=== PATIENT | female | born 1985 | race Caucasian/White ===

== ENCOUNTER 2018-09-05 16:41 | Outpatient (CLI) | payer OTHER ==
[~2018-09-05] VITALS: Ht 167.6 cm; Wt 83.5 kg
[2018-09-05 17:39] VITALS: BP 120/76; PULSE 88; RESP 18; Ht 167.6 cm; Wt 83.5 kg
[2018-09-05] MEDS ORDERED: LACTATED RINGER'S 1,000 ML IV SCH (17:53)
[2018-09-05] MEDS: TERBUTALINE 1 MG/ML INJ SC PRN ×2 (18:15→19:40)
--- NOTE | 2018-09-05 23:54 | PN ---
Triage Information Date/Time Reason for visit: Uterine contractions Weeks of Gestation 37 weeks and 3 days /Para 4 para 3004 with 1 delivery for twin gestation. Diabetes: none Hypertention: none Objective Vital Signs Date Temp Pulse Resp B/P (MAP) Pulse Ox O2 O2 Flow FiO2 Time Delivery Rate 09/05/18 98.0 88 18 120/76 99 17:39 (91) Heart Rate: 140's Contractions: 6-10 Minutes Apart Results/Medications Imaging Results Gestation: Single intrauterine gestation. Cardiac activity: 150 beats per minute Presentation: Vertex. Placenta: Location: Fundal/posterior Appearance: No previa or abruption. Amniotic Fluid: KELLI = 25.3 cm Measurements: BPD = 9.5 cm 38 weeks 4 days HC = 33.2 cm 37 weeks 6 days AC = 34.9 cm 38 weeks 6 days FL = 7.4 cm 37 weeks 5 days Gestational Age: AUA estimated gestational age: 38 weeks 2 days AUA estimated date of delivery: 09/17/2018 The EFW = 3500 g plus/minus 525 g (78.8%) Structures: The anatomy is not well evaluated on this limited scan. IMPRESSION: 1. Single intrauterine gestation of 38 weeks 2 days by ultrasound criteria. 2. Estimated date of delivery of 09/17/2018. 3. Polyhydramnios. The amniotic fluid index is 25.3 cm. This is between the 95 and 97.5 percentile. 4. Otherwise, no definite abnormalities are identified. Disposition: Discharge Assessment/Plan 33 years old with 4 delivery for twin gestation at 37 weeks and 3 days complaining of uterine contractions. She states good movement. She denies nausea, vomiting, shortness of breath, chest pain, headache, visual changes, vaginal bleeding or LOF. -FHR: No sign of metabolic acidosis- Category I -Initially she had regular uterine contraction every 3-6 minutes. She received IV fluid and 2 doses of terbutaline.no further uterine contractions. Patient was comfortable. She observed in triage for 4 and half hours. Her cervical exam was figured tIP/thick/high/cephalic/intact membrane. No cervical changes after 4 hours. -Ultrasound performed as noted above -Symptoms and sign of labor, preeclampsia, kick count discussed with patient, she voiced understanding. All of her questions answered. -Patient was discharged home in stable condition with the appropriate discharge instructions provided. I would like patient to have close follow-up with her primary physician or outpatient clinic in 1-2 days or return to triage for worsening symptoms or any other urgent concerns. EBER RIZO Sep 05, 2018 23:54
--- NOTE | 2018-09-06 10:02 | TRIAGE ---
OB Triage Datetime Report Generated by CPN: 09/06/2018 10:01 Datetime: 09/06/2018 22:17 Stage of : OB Triage Datetime: 09/06/2018 21:30 Stage of : OB Triage Datetime: 09/06/2018 20:30 Stage of : OB Triage Datetime: 09/06/2018 19:30 Stage of : OB Triage Datetime: 09/05/2018 22:17 Stage of : OB Triage Labor Evaluation Frequency: IRREG Monitor Mode: External Duration (sec)2399: 40-70 Quality: Mild Pattern: Normal: <= 5 Contractions in 10 Minutes Resting Tone [place]: Relaxed Heart Rate FHR Baseline Rate: 140 Monitor Mode: External US FHR Baseline Changes: No Baseline Change Variability: Moderate 6-25 bpm Accelerations: 15X15 Decelerations: None Category: Category I Datetime: 09/05/2018 21:52 Vaginal Exam Dilatation (cms): 0.5 Effacement (%): 50 Station: -3 Exam By: JOHNIE Datetime: 09/05/2018 21:30 Stage of : OB Triage Labor Evaluation Frequency: X4/HR Monitor Mode: External Duration (sec)2399: 70-150 Quality: Mild Pattern: Normal: <= 5 Contractions in 10 Minutes Resting Tone [place]: Relaxed Heart Rate FHR Baseline Rate: 140 Monitor Mode: External US FHR Baseline Changes: No Baseline Change Variability: Moderate 6-25 bpm Accelerations: 15X15 Decelerations: None Category: Category I Datetime: 09/05/2018 20:52 Vaginal Exam Dilatation (cms): 0.5 Effacement (%): 50 Station: -3 Exam By: JOHNIE Cervix, Position: Posterior Datetime: 09/05/2018 20:30 Stage of : OB Triage Labor Evaluation Frequency: X4/HR Monitor Mode: External Duration (sec)2399: 70-120 Quality: Mild Pattern: Normal: <= 5 Contractions in 10 Minutes Resting Tone [place]: Relaxed Heart Rate FHR Baseline Rate: 140 Monitor Mode: External US FHR Baseline Changes: No Baseline Change Variability: Moderate 6-25 bpm Accelerations: 15X15 Decelerations: None Category: Category I Datetime: 09/05/2018 19:30 Stage of : OB Triage Labor Evaluation Frequency: 3-9 Monitor Mode: External Duration (sec)2399: 50-100 Quality: Mild Pattern: Normal: <= 5 Contractions in 10 Minutes Resting Tone [place]: Relaxed Heart Rate FHR Baseline Rate: 140 Monitor Mode: External US FHR Baseline Changes: No Baseline Change Variability: Moderate 6-25 bpm Accelerations: 15X15 Decelerations: None Category: Category I Datetime: 09/05/2018 18:44 Stage of : OB Triage Headache: Denies Blurred Vision: No RUQ Epigastric Pain: Denies Facial Edema: None Labor Evaluation Frequency: none Pattern: Normal: <= 5 Contractions in 10 Minutes Resting Tone [place]: Relaxed Heart Rate FHR Baseline Rate: 145 Monitor Mode: External US FHR Baseline Changes: No Baseline Change Variability: Moderate 6-25 bpm Accelerations: 15X15 Decelerations: None Category: Category I Pain Presence: None/Denies Membrane Status: Intact Datetime: 09/05/2018 18:31 Stage of : OB Triage Headache: Denies Blurred Vision: No RUQ Epigastric Pain: Denies Facial Edema: None Labor Evaluation Frequency: none Pattern: Normal: <= 5 Contractions in 10 Minutes Resting Tone [place]: Relaxed Heart Rate FHR Baseline Rate: 140 Monitor Mode: External US FHR Baseline Changes: No Baseline Change Variability: Moderate 6-25 bpm Accelerations: 15X15 Decelerations: None Category: Category I Pain Presence: None/Denies Membrane Status: Intact Datetime: 09/05/2018 17:59 Stage of : OB Triage Labor Evaluation Frequency: 6 Monitor Mode: External Duration (sec)2399: 70 Quality: Mild Pattern: Normal: <= 5 Contractions in 10 Minutes Resting Tone [place]: Relaxed Heart Rate FHR Baseline Rate: 140 Monitor Mode: External US FHR Baseline Changes: No Baseline Change Variability: Moderate 6-25 bpm Accelerations: 15X15 Decelerations: None Category: Category I Membrane Status: Intact Datetime: 09/05/2018 17:43 Vaginal Exam Dilatation (cms): 0.5 Effacement (%): 50 Station: -2 Exam By: JOHN RNC Vaginal Bleeding: None Cervix, Consistency: Soft Cervix, Position: Posterior Presentation 'A': Cephalic Datetime: 09/05/2018 17:33 Stage of : OB Triage Time of Arrival: 08/30/2018 17:33 EGA: 36.4 Chief Complaint: contractions since last night Movement: Present Contractions: Irregular Time Contractions Began: 08/29/2018 02:00 Rupture of Membranes: Denies Vaginal Discharge: Denies Recent Sexual Intercouse: Denies Abdominal Trauma: Not Applicable Patient Complaints: Contractions Additional Patient Complaints: TRAY C/S ON 09/21/18 Time Provider Notified: 09/05/2018 17:45 Provider Notified: Dr Williamson Initial Plan: efm/ efm Maternal Assessment Level of Consciousness: Fully Conscious DTR's/Clonus: DTRs 2+; No Clonus Headache: Denies Blurred Vision: No Respiratory Effort: Unlabored; Regular Rhythm; Equal Expansion Breath Sounds, Left: Clear and Equal Breath Sounds, Right: Clear and Equal Nausea/Vomiting: Denies RUQ Epigastric Pain: Denies Lower Extremities Edema: Bilateral Lower Extremities Degree: 1+ Facial Edema: None Temperature Route: Oral Fall Risk Assessment History of Falling: (0) No Secondary Diagnosis: (0) No Ambulatory Aid: (0) Bedrest/Nurse Assist IV Therapy: (0) No Gait: (0) Normal/Bedrest/Immobile Mental Status: (0) Oriented to Own Ability Fall Score: 0 Fall Risk Score Definition: No Risk: No action required Labor Evaluation Frequency: 5 Monitor Mode: External Duration (sec)2399: 50 Quality: Mild Pattern: Normal: <= 5 Contractions in 10 Minutes Heart Rate FHR Baseline Rate: 130 Monitor Mode: External US Variability: Moderate 6-25 bpm Accelerations: 15X15 Decelerations: None Pain Assessment Pain Scale: 4 Pain Presence: Intermittent Pain Type: Contraction Pain Location: Abdomen Pain Relief Measures: Comfort Measures
== END 2018-09-05 22:40 | disposition home or self-care (01) ==
LOC: OBT 16:41 → L-D 16:42 → OBT 22:40
PROVIDERS: ATTEND Obstetrics & Gynecology
DX: O62.9 Abnormality of forces of labor, unspecified (principal); Z3A.37 37 weeks gestation of pregnancy
CPT/HCPCS: 36415; 76815; 96360; 96361; J3105; J7120; Z7500; G0463

== ENCOUNTER 2018-09-08 10:29 | Inpatient (IN) | payer OTHER ==
[~2018-09-08] VITALS: Ht 167.6 cm; Wt 83.7 kg
[2018-09-08 10:46] VITALS: BP 119/72; PULSE 76; Ht 167.6 cm; Wt 83.7 kg
[2018-09-08] MEDS ORDERED: PNV11TAB PO (10:47)
[2018-09-08] MEDS: LACTATED RINGER'S 1,000 ML IV SCH ×2 (11:50→19:36)
[2018-09-08] MEDS ORDERED: CARBOPROST 250 MCG INJ IM PRN ×2 (12:00→22:30)
[2018-09-08] MEDS ORDERED: METHYLERGONOVINE 0.2 MG INJ IM PRN ×2 (12:00→22:30)
[2018-09-08] MEDS ORDERED: CEFAZOLIN 2 GM/50 ML (PMX) 50 ML IVPB SCH (12:00)
[2018-09-08] MEDS ORDERED: OXYTOCIN 30 UNITS/LR 500 ML IV SCH ×2 (12:00→22:19)
[2018-09-08] MEDS ORDERED: MISOPROSTOL 200 MCG TAB PR PRN ×2 (12:00→22:30)
[2018-09-08] MEDS ORDERED: OXYTOCIN 30 UNITS/LR 500 ML IV PRN ×2 (12:00→22:30)
[2018-09-08] MEDS ORDERED: LACTATED RINGER'S 1,000 ML IV ONE (12:32)
--- NOTE | 2018-09-08 12:32 | PREAC ---
Date/Time of Note Date/Time of Note DATE: 09/08/18 TIME: 12:31 Anesthesia Eval and Record Evaluation Time Pre-Procedure Interview DATE: 09/08/18 TIME: 12:31 Age 33 Sex female NPO: 8 hrs Preoperative diagnosis intrauterine Planned procedure repeat c section Past Medical History Past Medical History: Includes : Gestational age: (37.6) Surgery & Anesthesia Issues No known issue Meds Anticoagulation: No Beta Elza within 24 hr: No Reason Beta Elza not given: Pt. not on B-Elza Reported Medications [id number] ( 19) 1 Each Tablet, 1 TAB PO DAILY, TAB 09/08/18 Current Medications Lactated Ringer's 1,000 ml @ 125 mls/hr Q8H IV Last administered on 09/08/18at 11:50; Admin Dose 125 MLS/HR; Start 09/08/18 at 11:36 Cefazolin Sodium/ Dextrose 50 ml @ 100 mls/hr ONCE IVPB ; Start 09/08/18 at 12:00 Oxytocin/Lactated Ringer's 500 ml @ 125 mls/hr POST IV ; Start 09/08/18 at 12:00 Oxytocin/Lactated Ringer's 500 ml @ 0 mls/hr ONCE PRN IV .VAGINAL BLEEDING; Start 09/08/18 at 12:00 Methylergonovine Maleate (Methergine) 0.2 mg ONCE PRN IM .VAGINAL BLEEDING; Start 09/08/18 at 12:00 Carboprost Tromethamine (Hemabate) 250 mcg ONCE PRN IM .VAGINAL BLEEDING; Start 09/08/18 at 12:00 Misoprostol (Cytotec) 1,000 mcg ONCE PRN MT .VAGINAL BLEEDING; Start 09/08/18 at 12:00 Meds reviewed: Yes Allergies Coded Allergies: No Known Allergy (Unverified , 09/05/18) Allergies Reviewed: Yes Labs/Studies Labs Reviewed: Reviewed by anesthesiologist Result Diagram: 09/08/18 1145 Laboratory Tests 09/08/18 11:45 test: N/A Pre-procedure Exam Last vitals Vital Signs Date Temp Pulse Resp B/P (MAP) Pulse Ox O2 O2 Flow FiO2 Time Delivery Rate 09/08/18 98.4 76 119/72 10:46 (88) Airway: Adequate mouth opening, Adequate thyromental dist Mallampati: Mallampati II Teeth: Normal Lung: Normal Heart: Normal ASA Physical Status ASA physical status: 2 Emergency: None Planned Anesthetic Neuraxial: Spinal Planned Pain Management Parenteral pain med Pre-operative Attestations Prior to commencing anesthesia and surgery, the patient was re-evaluated, there was verification of: *The patient's identity *The results of appropriate recent lab work and preoperative vital signs *The above evaluation not changing prior to induction *Anesthetic plan, risk benefits, alternative and complications discussed with patient/family; questions answered; patient/family understands, accepts and wishes to proceed. JAMIL FORD MD Sep 08, 2018 12:32
[2018-09-08] MEDS ORDERED: FAMOTIDINE 20 MG INJ IV ONE ×3 (13:00→17:03)
[2018-09-08] MEDS ORDERED: METOCLOPRAMIDE 10 MG INJ IV ONE (13:00)
[2018-09-08] MEDS ORDERED: CITRIC ACID/NA CITRATE 30 ML CUP PO ONE (13:00)
[2018-09-08] MEDS ORDERED: TERBUTALINE 1 MG/ML INJ SC ONE (15:30)
[2018-09-08] MEDS ORDERED: morphine SULFATE/PF (10 MG/10 ML) INJ ONE (17:16)
--- NOTE | 2018-09-08 17:27 | HP ---
Date/Time of Note Date/Time of Note DATE: 09/08/18 TIME: 17:26 OB - History Hx of Present Free Text/Dictation AT TERM WITH UTERINE CTXS AND PREEVIOUS C/S AND MULTIPARITY Care: Good Care Ultrasounds: Normal mid trimester US Obstetrical Complications: None Medical Complications: None Past Family/Social History * Past Medical, Surgical, Family and Obstetric Histories reviewed from chart. OB Admission Exam Vital Signs Vital Signs Vital Signs Date Temp Pulse Resp B/P (MAP) Pulse Ox O2 O2 Flow FiO2 Time Delivery Rate 09/08/18 98.4 76 119/72 10:46 (88) Physical Exam HEENT: WNL Heart: Rhythm Normal Lungs: Clear, Equal Abdomen: WNL Extremities: Normal Reflexes: Normal Cervical Dilatation: 2cm Effacement: 25% Station: -2 Membranes: Intact Heart Rate: 130's Accelerations: Accelerations Present Decelerations: No Decelerations Varibility: Moderate Contractions on Admission: 6-10 Minutes Apart Intensity: Moderate Last 72 hours Lab Results CBC & BMP 09/08/18 11:45 OB Assessment/Plan Reason for admission: active labor Plan: Section GEMA HICKMAN MD Sep 08, 2018 17:27
[2018-09-08] MEDS ORDERED: ONDANSETRON 4 MG INJ ONE (17:43)
[2018-09-08] MEDS ORDERED: PHENYLephrine (100 MCG/ML) 10ML SYG ONE ×2 (17:45→17:57)
[2018-09-08] MEDS ORDERED: ONDANSETRON 4 MG INJ IV PRN ×2 (18:00→18:30)
[2018-09-08] MEDS ORDERED: KETOROLAC 30 MG INJ IV PRN ×2 (18:00→18:30)
[2018-09-08] MEDS ORDERED: MEPERIDINE 25 MG INJ IV PRN (18:00)
[2018-09-08] MEDS ORDERED: DIPHENHYDRAMINE 50 MG INJ IV PRN ×2 (18:00→18:30)
[2018-09-08] MEDS ORDERED: HYDROmorphONE 1 MG/5 ML IV SYRINGE IV PRN ×3 (18:00)
[2018-09-08] MEDS ORDERED: PROCHLORPERAZINE 10 MG INJ IV PRN (18:00)
[2018-09-08] MEDS ORDERED: FENTAnyl 50 MCG/ML VIAL IV PRN ×3 (18:00)
[2018-09-08] MEDS ORDERED: OXYTOCIN 30 UNITS/LR 500 ML IV ONE (18:03)
--- NOTE | 2018-09-08 18:22 | OPR ---
Operative Report Planned Procedure Procedure date Sep 08, 2018 Procedure(s) REPEAT C/S AND BTL Performed by see signature line Clock And Watch Assembler: REBECA WONG MD Pre-procedure diagnosis REPEAT C/S IN LABOR AND BTL [id number] Anesthesia Type: Ptycp2l spinal Post-Procedure Post-procedure diagnosis SAME PRE OP Findings Live Baby [], Apgars [] and [], weight [], position [], [] presentation []cord. Estimated Blood Loss: 600 - 700 mls Specimen(s) none Grafts/Implant(s) none Complication(s) none Pt Condition post procedure: stable Disposition: PACU Procedure Description Under satisfactory []SPINAL anesthesia, the patient was prepped and draped and placed in a supine position, tilted to the left. Pfannenstiel incision was made, carried through the subcutaneous tissue. Bleeders brought under control with electrocautery. Fascia incised to the length of the incision. Rectus muscles from the fascia, divided midline. Peritoneum exposed, entered through a transverse incision. Exploration of abdomen revealed gravid uterus. Bladder flap was developed. Transverse incision was made in the lower segment of the uterus. Amniotic sac ruptured. CLEAR [] amniotic fluid noted. [] Nasal oropharyngeal suction was performed. The baby was handed to the team for immediate attention. The placenta was delivered manually intact. Uterine cavity was cleaned with wet sponge and drainage established. Uterus closed in 2 layers using ONE MONOCRYL [] in continuous fashion. Peritoneal cavity irrigated with warm saline. RIGHT AND LEFT TUBE WAS TIED USING O PLAIN TIE TWICE AND CUT Sponge, needle and instrument count reported to be correct. Abdominal peritoneum closed with [ONE MONOCRYL] continuously. Fascia closed with [ONE MONOCRYL], and skin closed with calos. Estimated blood loss [700]mL. GEMA HICKMAN MD Sep 08, 2018 18:22
--- NOTE | 2018-09-08 18:23 | PAC ---
Date/Time of Note Date/Time of Note DATE: 09/08/18 TIME: 18:21 Post-Anesthesia Notes Post-Anesthesia Note Last documented vital signs Vital Signs Date Temp Pulse Resp B/P (MAP) Pulse Ox O2 O2 Flow FiO2 Time Delivery Rate 09/08/18 98.4 76 119/72 10:46 (88) Activity: WNL Respiratory function: WNL Cardiovascular function: WNL Mental status: Baseline Pain reasonably controlled: Yes Hydration appropriate: Yes Nausea/Vomiting absent: Yes Comments BP: 108/57 HR: 99 RR: 16 T: 97.3 SaO2: 97% JAMIL FORD MD Sep 08, 2018 18:23
[2018-09-08] MEDS ORDERED: NALOXONE (0.4 MG/ML) INJ IV PRN (18:30)
[2018-09-08] MEDS ORDERED: ZOLPIDEM 5 MG TAB PO PRN (18:30)
[2018-09-08] MEDS ORDERED: HYDROmorphONE 0.5 MG/0.5 ML SYG IV PRN ×2 (18:30)
[2018-09-08 21:05] VITALS: BP 98/56; PULSE 77; RESP 18
[2018-09-08] MEDS ORDERED: LACTATED RINGER'S 1,000 ML IV SCH (22:19)
[2018-09-08] MEDS ORDERED: LANOLIN HPA 1 PKT TOP PRN (22:30)
[2018-09-08] MEDS ORDERED: NA PHOSPHATE/BIPHOS 133 ML ENEMA PR PRN (22:30)
[2018-09-08] MEDS ORDERED: NACL 0.9% 3 ML SYG IV SCH (22:30)
[2018-09-09] MEDS ORDERED: LACTATED RINGER'S 500 ML IV ONE
[2018-09-09 00:14] VITALS: BP 98/51; PULSE 77; RESP 20
[2018-09-09 04:10] VITALS: BP 98/53; PULSE 87; RESP 18
--- NOTE | 2018-09-09 07:29 | QN ---
Documentation Comment doing well vss abd soft incision healing well cpm GEMA HICKMAN MD Sep 09, 2018 07:29
[2018-09-09 08:00] VITALS: BP 110/65; PULSE 99; RESP 17
[2018-09-09 16:00] VITALS: BP 105/61; PULSE 93; RESP 18
[2018-09-09 19:50] VITALS: BP 115/76; RESP 16
[2018-09-09] MEDS: HYDROCODONE/APAP (5/325) TAB PO PRN (21:10)
[2018-09-09] MEDS: IBUPROFEN 800 MG TAB PO SCH (22:04)
[2018-09-10 04:30] VITALS: BP 111/71; PULSE 90; RESP 18
[2018-09-10] MEDS: IBUPROFEN 800 MG TAB PO SCH ×3 (06:04→21:45)
[2018-09-10 08:00] VITALS: BP 105/69; PULSE 89; RESP 18
[2018-09-10] MEDS: HYDROCODONE/APAP (5/325) TAB PO PRN ×2 (11:34→18:37)
--- NOTE | 2018-09-10 13:08 | QN ---
Documentation Comment POD#2 is stable afebrile tolerates diet No VB +Flatus +Voids VS stable Gen NAD Abd soft NT ND Incision intact Gentalia No blood at perineum -->Discharge plan tomorrow -->Ambulation -->Precautions discussed TRAVIS MCNEIL M.D. Sep 10, 2018 13:08
[2018-09-10 16:00] VITALS: BP 102/63; PULSE 87; RESP 17
[2018-09-10 19:50] VITALS: BP 106/66; PULSE 80
[2018-09-11] MEDS: HYDROCODONE/APAP (5/325) TAB PO PRN ×2 (03:58→12:08)
[2018-09-11 04:20] VITALS: BP 125/77; PULSE 78; RESP 18
[2018-09-11] MEDS: IBUPROFEN 800 MG TAB PO SCH (05:48)
[2018-09-11 08:00] VITALS: BP 102/59; PULSE 86; RESP 18
--- NOTE | 2018-09-11 08:19 | DS ---
Date/Time of Note Date/Time of Note DATE: 09/11/18 TIME: 08:18 Discharge Summary Admission/Discharge Info Admit Date/Time Sep 08, 2018 at 11:30 Discharge Date/Time Discharge Diagnosis term in labor with previous c/s Patient Condition: Stable Hospital Course unremarkable Home Meds Reported Medications [id number] ( 19) 1 Each Tablet, 1 TAB PO DAILY, TAB 09/08/18 Primary Care Provider Not On Staff Doctor Pending Labs Laboratory Tests Test 09/11/18 07:02 Lab Scanned Report REFERENCE LAB [id number] GEMA HICKMAN MD Sep 11, 2018 08:19
[2018-09-11] MEDS ORDERED: MEASLES,MUMPS,RUBELLA VACCINE INJ SC* ONE (09:00)
[2018-09-11] MEDS ORDERED: DIPHTH/TET/ACEL PERTUSS (ADULT) 0.5 ML VIAL IM* ONE (09:00)
--- NOTE | 2018-09-12 13:23 | DELSUM ---
Delivery Summary A-C Datetime Report Generated by CPN: 09/12/2018 13:23 DELIVERY PERSONNEL High School Sports Coach: Orel, Carolyn MATERNAL INFORMATION Delivery Anesthesia: Spinal Medications in Delivery: SEE ANESTHESIA Delivery QBL (ml): 700 Placenta Cultured: No Maternal Complications: None LABOR SUMMARY EDC: 09/23/2018 00:00 No. Babies in Womb: 1 Attempted: No Labor Anesthesia: None LABOR INFORMATION Reason for Induction: Not Applicable Onset of Labor: 09/08/2018 05:00 Oxytocin: N/A Group B Beta Strep: Negative Antibiotics # of Doses: ancef 2gm Antibiotics Time of Last Dose: 09/08/2018 17:16 Steroids Given: None Reason Steroids Not Administered: Not Applicable MEMBRANES Membranes Rupture Method: Artificial Rupture of Membranes: 09/08/2018 17:43 Length of Rupture (hr): 0.00 Amniotic Fluid Color: Clear Amniotic Fluid Amount: Moderate Amniotic Fluid Odor: None STAGES OF LABOR Stage 3 hr: 0 Stage 3 min: 1 Total Time in Labor hr: 12 Total Time in Labor min: 44 CSECTION DELIVERY Primary Indication: Repeat Elective Secondary Indication: Repeat Elective CSection Urgency: Elective CSection Incidence: Repeat Labor: N/A Elective: N/A CSection Incision: Lower Uterine Transverse Sterilization Procedure: [place] BABY A INFORMATION Delivery Date/Time: 09/08/2018 17:43 Method of Delivery: Born in Route : No : N/A Forceps: N/A Vacuum Extraction: N/A Shoulder Dystocia : No SHOULDER DYSTOCIA BABY A Delivery Date/Time: 09/08/2018 17:43 PRESENTATION/POSITION BABY A Presentation: Cephalic Cephalic Presentation: Vertex Vertex Position: Left Occipital Anterior Breech Presentation: N/A PLACENTA INFORMATION BABY A Placenta Delivery Time : 09/08/2018 17:44 Placenta Method of Delivery: Manual Removal Placenta Status: Delivered SCORES BABY A Heart Rate 1 min: >100 bpm Resp Effort 1 min: Good Cry Reflex Irritability 1 min: Cough/Sneeze/Pulls Away Muscle Tone 1 min: Active Motion Color 1 min: Blue/Pale Resuscitation Effort 1 min: Tactile Stimulation SCORE 1 MIN: 8 Heart Rate 5 min: >100 bpm Resp Effort 5 min: Good Cry Reflex Irritability 5 min: Cough/Sneeze/Pulls Away Muscle Tone 5 min: Active Motion Color 5 min: Body [place], Extremit Blue Resuscitation Effort 5 min: Tactile Stimulation SCORE 5 MIN: 9 INFORMATION BABY A Gestational Age at Delivery: 37.6 Gestational Status: Early Term- 37- 38.6 Weeks Outcome : Liveborn Condition : Stable Sex: Female IDENTIFICATION/MEDS BABY A ID Band Number: [id number] ID Band Location: Right Leg; Left Arm Sensor Applied: Yes Sensor Number: [id number] Sensor Location : Cord Clamp Vitamin K Given : Not Given Erythromycin Given: Not Given WEIGHT/LENGTH BABY A Infant Birthweight (gm): 3470 Infant Weight (lb): 7 Infant Weight (oz): 10 Infant Length (in): 19.50 Infant Length (cm): 49.53 CORD INFORMATION BABY A No. Cord Vessels: 3 Nuchal Cord : N/A Cord Blood Taken: Yes Suction: Mouth; Nose ASSESSMENT BABY A Infant Complications: None Physical Findings at Delivery: Within Normal Limits Infant Respirations: Appears Normal Marketing Database Analyst/ALS Called : No Infant Care By: SINCERE Izaguirre Transferred To: Remains with Mother
== END 2018-09-11 13:10 | disposition home or self-care (01) | DRG 785 ==
LOC: OBT 10:29 → L-D 10:29 → OBT 11:39 → L-D 17:12 → PP1 21:03
PROVIDERS: ADMIT Obstetrics & Gynecology; ATTEND Obstetrics & Gynecology
PROC: 0UL70ZZ Occlusion of Bilateral Fallopian Tubes, Open Approach (ICD-10-PCS; 2018-09-08)
PROC: 3E033VJ Introduction of Other Hormone into Peripheral Vein, Percutaneous Approach (ICD-10-PCS; 2018-09-08)
PROC: 10D00Z1 Extraction of Products of Conception, Low, Open Approach (ICD-10-PCS; principal; 2018-09-08 12:30)
DX: O65.5 Obstructed labor due to abnormality of maternal pelvic organs (principal); O34.211 Maternal care for low transverse scar from previous cesarean delivery; Z3A.37 37 weeks gestation of pregnancy; Z37.0 Single live birth; Z30.2 Encounter for sterilization
CPT/HCPCS: 85025; 85610; 85730; 86592; 86850; 86900; 86901; 88302; 99464; G0463; J0690; J1885; J2274; J2370; J2405; J2590; J2765; J3010; J3105; J7120